=== PATIENT | male | born 1975 | race Asian ===

== ENCOUNTER 2017-07-29 02:54 | Inpatient (IN) | payer SELFPAY ==
[~2017-07-29] VITALS: Ht 175.3 cm; Wt 75.2 kg
[2017-07-29] VITALS (23 sets, daily range): BP systolic 78–176; BP diastolic 59–97; PULSE 78–146; RESP 15–28; TEMP 96.1–103.3; O2SAT 92–100
[~2017-07-29 02:54] MED LIST: AZIT250T3 PO; BENZ1CAP54 PO; LORA5SOL16
[2017-07-29] MEDS ORDERED: SODIUM CHLORIDE 0.9% FLUSH 10 ML FLUSH IV FLUSH PRN (03:30)
[2017-07-29] MEDS ORDERED: NALOXONE HCL 0.4 MG/ML AMP IV PUSH PRN (03:30)
[2017-07-29] MEDS ORDERED: PIPERACIL-TAZO 4.5 GM PREMIX 100 ML IV SCH (06:45)
[2017-07-29] MEDS: SODIUM CHLOR 0.9% 1000 ML INJ 1,000 ML IV SCH ×3 (07:06→19:50)
[2017-07-29] MEDS: SODIUM CHLORIDE 0.9% FLUSH 10 ML FLUSH IV FLUSH SCH ×2 (09:00→19:50)
[2017-07-29 10:08] LABS: PROTHROMBIN TIME - PATIENT 10.2 SEC (9.8-11.6)
[2017-07-29] MEDS ORDERED: MIDAZOLAM HCL 2 MG/2 ML VIAL IV ONE (12:00)
[2017-07-29] MEDS ORDERED: LEVOFLOXACIN/DEXTROSE 500 MG/100 ML IVPB IV ONE (12:10)
--- NOTE | 2017-07-29 12:33 | PD.RAD ---
Post Procedure Progress Note Pre Procedure Diagnosis: (1) Hydronephrosis (2) Ureteral stent occlusion (3) Retained ureteral stent Post Procedure Diagnosis: (1) Pyonephrosis (2) Hydronephrosis (3) Ureteral stent occlusion (4) Retained ureteral stent Procedure Date: Jul 29, 2017 Supervising Radiologist: John Junior Proceduralist/Assist: Anaya Brock, RT(R)(CV), Andrea West RT(R) Anesthesia: Local, Analgesia, Conscious Sedation Plan of Activity Patient to Unit: Other (ED) Patient Condition: Good See PACS Report for procedural detail/treatment Drainage Procedure Procedure 1 Imaging Guidance: Fluoroscopy Side: Right Procedure Type: Nephrostomy Procedure: Placement Icelandic: 10 Fluid Description: Purulent Findings: Purulent aspirate from right kidney collecting system. Sample sent for GS, C&S John Junior MD Jul 29, 2017 12:33
[2017-07-29] MEDS: ONDANSETRON HCL 4 MG/2 ML VIAL IVP PRN (13:44)
[2017-07-29] MEDS ORDERED: ASP: ID consult, note reason in consult order PRN (13:45)
[2017-07-29] MEDS ORDERED: MISCELLANEOUS PHARMACY INFORMATION XX PRN (13:45)
[2017-07-29] MEDS ORDERED: Vancomycin Consult Pharmacy 1 EA OTHER SCH (13:45)
[2017-07-29] MEDS ORDERED: VANCOMYCIN 1,000 MG/NS 250 ML IV ONE ×2 (14:15)
--- NOTE | 2017-07-29 14:22 | HHI.HP ---
[facility] Service [facility] Primary Care Physician No Primary Care Physician Admission Diagnosis Pyelonephritis Diagnoses: (1) Pyonephrosis (2) Retained ureteral stent (3) Hydronephrosis (4) Enteritis Chief Complaint: Abdominal pain Travel History International Travel<30 Days: No Contact w/Intl Traveler <30 Da: No Traveled to Known Affected Are: No History of Present Illness The patient is a 42-year-old [place] male who was admitted from the [place] emergency department overnight due to abdominal pain, nausea, and vomiting. Computer translation service utilized. He reports a history of kidney stones and had a urinary stent placed one year ago. The stent is still in place. He reports that his urine has been foul- smelling. He just returned to the floor from interventional radiology where he had a right nephrostomy tube placed. There was reportedly purulent drainage when the tube was placed. He developed significant nausea and vomiting, which has improved with Zofran. His abdominal pain is also better. He reports chills , but denies fever. Reports mild cough, but no dyspnea or chest pain. He was recently given azithromycin for an upper respiratory infection, and has not yet completed the antibiotics. He states that he had 4 loose stools yesterday, but has had no loose stools today. Review of Systems Constitutional: DENIES: Fever, Chills, Night Sweats Eyes: DENIES: Blurred vision, Vision loss Ears, nose, mouth, throat: DENIES: Hearing loss Respiratory: COMPLAINS OF: Cough, DENIES: Wheezing, Sputum production, Shortness of breath Cardiovascular: DENIES: Chest pain, Palpitations, Dyspnea on Exertion, Lower Extremity Edema Gastrointestinal: COMPLAINS OF: Abdominal pain, Diarrhea, Nausea, Vomiting, DENIES: Constipation Genitourinary: DENIES: Urinary frequency, Urinary incontinence, Urgency, Hematuria, Dysuria, Nocturia Musculoskeletal: DENIES: Joint pain, Muscle aches Integumentary: DENIES: Pruritus, Rash Hematologic/lymphatic: DENIES: Bruising Neurologic: DENIES: Headache Past Family Social History Past Medical History Kidney stones Past Surgical History Ureteral stent placement 1 year ago Reported Medications Azithromycin 250 Mg Tab 250 Mg PO DIRECTED Take 2 tabs (500 mg) on day 1 then 1 tab daily x 4 days. Benzonatate 100 Mg Cap 200 Mg PO TID PRN Loratadine 5 Mg/5 Ml (5 Ml) Solution Allergies: Coded Allergies: No Known Allergies (Unverified , 07/29/17) Family History The patient denies significant family medical history. Social History Denies tobacco or illicit drug use. Occasional alcohol use. Physical Exam Vital Signs Vital Signs Date Time Temp Pulse Resp B/P (MAP) Pulse Ox O2 Delivery O2 Flow Rate FiO2 07/29/17 13:45 96.5 119 18 152/97 (115) 99 07/29/17 12:58 84 16 121/91 (101) 100 07/29/17 12:42 98.0 81 16 123/86 (98) 100 07/29/17 12:00 97.4 97 18 118/71 (87) 92 07/29/17 08:30 81 07/29/17 08:16 82 16 100/64 (76) 98 07/29/17 08:00 96.1 78 15 107/73 (84) 99 07/29/17 07:15 16 07/29/17 07:07 97.9 86 16 101/65 (77) 97 Room Air 07/29/17 06:17 97.7 81 18 117/80 (92) 99 Room Air 07/29/17 06:17 16 Physical Exam GENERAL: Well-nourished, well-developed male in no acute distress. Speaks Mandarin. HEENT: Normocephalic, atraumatic. Pupils equal, round and reactive. Extraocular movements intact. No scleral icterus. No injection or drainage. Oropharynx is clear. Mucous membranes are moist. CARDIOVASCULAR: Regular rate and rhythm without murmurs, gallops, or rubs. RESPIRATORY: Clear to auscultation. No wheezes, rales, or rhonchi. Breathing is non-labored. GASTROINTESTINAL: Abdomen soft, mildly tender to palpation diffusely without rebound or guarding, nondistended. Right nephrostomy tube in place. EXTREMITIES: No lower extremity edema. No calf tenderness. PSYCH: Alert and oriented x 3. Laboratory Laboratory Tests Test 07/29/17 09:35 Prothrombin Time 10.2 Prothromb Time International Ratio 1.0 Activated Partial Thromboplast Time 27.4 Date/Time Source Procedure Growth Status 07/29/17 12:22 Fluid Other Gram Stain Pending Received 07/29/17 12:22 Fluid Other Body Fluid Culture Pending Received Caprini VTE Risk Assessment Caprini VTE Risk Assessment: No/Low Risk (score <= 1) Caprini Risk Assessment Model Point Value = 1 Point Value = 2 Point Value = 3 Point Value = 5 Age 41-60 Minor surgery BMI > 25 kg/m2 Swollen legs Varicose veins or History of unexplained or recurrent spontaneous Oral contraceptives or hormone replacement Sepsis (< 1 month) Serious lung disease, including pneumonia (< 1 month) Abnormal pulmonary function Acute myocardial infarction Congestive heart failure (< 1 month) History of inflammatory bowel disease Medical patient at bed rest Age 61-74 Arthroscopic surgery Major open surgery (> 45 min) Laparoscopic surgery (> 45 min) Malignancy Confined to bed (> 72 hours) Immobilizing plaster cast Central venous access Age >= 75 History of VTE Family history of VTE Factor V Leiden Prothrombin [id number] Lupus anticoagulant Anticardiolipin antibodies Elevated serum homocysteine Heparin-induced thrombocytopenia Other congenital or acquired thrombophilia Stroke (< 1 month) Elective arthroplasty Hip, pelvis, or leg fracture Acute spinal cord injury (< 1 month) Prophylaxis Regimen Total Risk Factor Score Risk Level Prophylaxis Regimen 0-1 Low Early ambulation 2 Moderate Order ONE of the following: *Sequential Compression Device (SCD) *Heparin 5000 units SQ BID 3-4 Higher Order ONE of the following medications: *Heparin 5000 units SQ TID *Enoxaparin/Lovenox 40 mg SQ daily (WT < 150 kg, CrCl > 30 mL/min) *Enoxaparin/Lovenox 30 mg SQ daily (WT < 150 kg, CrCl > 10-29 mL/min) *Enoxaparin/Lovenox 30 mg SQ BID (WT < 150 kg, CrCl > 30 mL/min) AND/OR *Sequential Compression Device (SCD) 5 or more Highest Order ONE of the following medications: *Heparin 5000 units SQ TID (Preferred with Epidurals) *Enoxaparin/Lovenox 40 mg SQ daily (WT < 150 kg, CrCl > 30 mL/min) *Enoxaparin/Lovenox 30 mg SQ daily (WT < 150 kg, CrCl > 10-29 mL/min) *Enoxaparin/Lovenox 30 mg SQ BID (WT < 150 kg, CrCl > 30 mL/min) AND *Sequential Compression Device (SCD) Assessment and Plan Assessment and Plan 1. Pyelonephritis: Patient has evidence of obstruction on CT scan with hydronephrosis. Ureteral stent in place 1 year. Nephrostomy tube placed by interventional radiology with purulent aspirate. Cultures are pending. Urology consult pending. Consult infectious disease. Start patient on vancomycin and meropenem per up-to-date recommendations for treatment of pyelonephritis with urinary obstruction. 2. Enteritis: Patient had diarrhea yesterday, but none today. CT of the abdomen/pelvis shows inflammation consistent with enteritis. Gastroenterology consult is pending. Continue antibiotics. C. difficile test ordered. 3. Acute kidney injury: Secondary to urinary obstruction. Monitor BUN and creatinine. 4. DVT prophylaxis: SCDs. Jose Luther MD Jul 29, 2017 14:22
--- NOTE | 2017-07-29 14:55 | RADRPT ---
EXAM DATE/TIME: 07/29/2017 10:41 [place] COMPARISON: No previous studies available for comparison. INDICATIONS : Patient presents with history of kidney stones in need of nephrostomy tube placement. MEDICAL HISTORY : Kidney stone SURGICAL HISTORY : Stent placement ENCOUNTER: Initial ACUITY: 2 days PAIN SCORE: 0/10 FLUORO TIME: 3.5 minutes IMAGE SERIES: 1 SEDATION TIME: 30 minutes MEDICATION(S): 1.) 100 mcg fentanyl (Sublimaze) IV 2.) 2 mg midazolam (Versed) IV DEVICE(S): 1.) 10 Afghan 23 cm nephrostomy catheter Expel twist loc PROCEDURE : 1. fluoroscopic-guided puncture of the kidney. 2. Antegrade percutaneous pyelogram. 3. Percutaneous nephrostomy placement. 4. Conscious sedation with continuous EKG and oximetry monitoring. The risks, benefits and alternatives to the procedure were explained and verbal and written consent w as obtained. The site was prepped in sterile fashion. Full sterile technique was used, including ca p, mask, sterile gloves and gown and a large sterile sheet. Hand hygiene and 2% chlorhexidine and/or betadine/alcohol prep was utilized per protocol for cutaneous antisepsis. Sterile gel and sterile probe cover were utilized for ultrasound guidance. The skin and subcutaneous tissues were infiltrate d with local anesthetic solution. With fluoroscopic guidance, a 22 gauge, 5 inch spinal needle was advanced into the patient's existing ureteric stent. The inner stylette was removed. Cardiolite fluid emanated from the hub of the cathet er. CO2 was injected through the hard to delineate the posterior calyceal system. A calyx at the junc tion of the upper and midpole was selected and the overlying skin anesthetized with an additional 7 c c 1% Xylocaine. Dermatotomy was made an 11 blade scalpel and the subcutaneous tissues were bluntly di ssected. 18 gauge Erwin blunt needle was advanced through the calyx. The inner stylette was removed again, with purulent fluid emanating from the hub. The 035 Glidewire was advanced through the outer cannula and the wire manipulated into the proximal ureter with a hockey-stick catheter. Tract was ser ially dilated to accommodate the 10 Afghan [place] loop catheter. Catheter was secured to the skin [facility] with 2-0 silk suture. Approximately 40 cc of purulent material was aspirated from the catheter and a sample sent to laboratory for analysis. Catheter was then placed to gravity drainage. Conscious sedation was performed with the prescribed dosages and duration as above in the presence of an independent trained radiology nurse to assist in the monitoring of the patient. EKG and oximetry remained stable throughout the procedure. The patient tolerated the procedure well and there were n o complications. The patient was sent to post anesthesia recovery in stable condition. CONCLUSION: 1. Uncomplicated nephrostomy tube placement as above. 2. Patient has pyonephrosis with purulent material aspirated from the collecting system John Junior MD on July 29, 2017 at 14:17 Board Certified Radiologist. This report was verified electronically.
[2017-07-29] MEDS ORDERED: ACETAMINOPHEN 325 MG SUPP RECTAL PRN (15:00)
[2017-07-29] MEDS: MORPHINE SULFATE 2 MG/ML INJ IV PUSH PRN ×2 (15:22→18:24)
[2017-07-29] MEDS ORDERED: PROMETHAZINE INJ 25 MG/ML VIAL IM ONE (15:30)
[2017-07-29 16:00] LABS: BASOPHIL # 0.1 TH/MM3 (0-0.2); BASOPHIL % 0.9 % (0.0-2.0); EOSINOPHIL % 0.1 % (0.0-4.0); HEMOGLOBIN 9.8 GM/DL (13.0-17.0); LYMPH % 4.1 % (9.0-44.0); LYMPHOCYTE # 0.5 TH/MM3 (1.0-4.8); MEAN CORPUSCULAR HEMOGLOBIN 20.5 PG (27.0-34.0); MEAN CORPUSCULAR HGB CONC 31.5 % (32.0-36.0); MEAN PLATELET VOLUME 7.5 FL (7.0-11.0); MONO % 0.2 % (0.0-8.0); NEUT % 94.7 % (16.0-70.0); PLATELET COUNT 559 TH/MM3 (150-450); RED BLOOD COUNT 4.77 MIL/MM3 (4.50-5.90); RED CELL DISTRIBUTION WIDTH 14.8 % (11.6-17.2); WHITE BLOOD COUNT 12.6 TH/MM3 (4.0-11.0)
[2017-07-29] MEDS: MEROPENEM INJ 1,000 MG in SODIUM CHLORIDE 0.9% INJ 100 ML IV SCH (16:14)
[2017-07-29 16:18] LABS: CHLORIDE 109 MEQ/L (98-107); SODIUM (NA) 140 MEQ/L (136-145)
[2017-07-29 16:22] LABS: ALBUMIN 2.5 GM/DL (3.4-5.0); BICARBONATE 23.3 MEQ/L (21.0-32.0); BLOOD UREA NITROGEN 20 MG/DL (7-18); CALCIUM 8.3 MG/DL (8.5-10.1); GLUCOSE,RANDOM 90 MG/DL (74-106)
[2017-07-29 16:25] LABS: ALT (GPT) 25 U/L (12-78); AST (GOT) 18 U/L (15-37); GLOMERULAR FILTRATION RATE 52 ML/MIN (>89)
[2017-07-29 16:27] LABS: TOTAL BILIRUBIN ADULT 0.5 MG/DL (0.2-1.0); TOTAL PROTEIN 8.5 GM/DL (6.4-8.2)
[2017-07-29 16:28] LABS: ALKALINE PHOSPHATASE 157 U/L (45-117)
--- NOTE | 2017-07-29 16:41 | MB ---
cc: THOMAS THORNE M.D., MATTHEW DATE OF CONSULTATION: 07/29/2017 REASON FOR CONSULTATION Nausea, vomiting, abdominal pain. CT scan showing enteritis. HISTORY OF PRESENT ILLNESS: Mr. Kothari is a 42-year-old gentleman apparently went to the emergency room with lower abdominal pain. He has had a right nephrostomy tube placement because he was found to have hydronephrosis on imaging study he has a indwelling urinary stent and this was placed about a year ago. He has history of kidney stones. On the CT scan incidental finding was thickened loops of the small intestine has prompted GI consultation. The patient states he had nausea, vomiting on admission and some diarrhea yesterday but no diarrhea today. He has not had a bowel movement today. Currently he is having lower abdominal discomfort. REVIEW OF SYSTEMS No active GI bleeding. No nausea, vomiting reported at this time. PAST MEDICAL HISTORY Kidney stones. PAST SURGICAL HISTORY Ureteral stent placement year ago in nephrostomy tube placement this morning. MEDICATIONS 1. Azithromycin. 2. Benzoate. 3. Loratadine. ALLERGIES None documented FAMILY HISTORY Noncontributory. SOCIAL HISTORY Occasional alcohol. No tobacco reported. PHYSICAL EXAMINATION: IN GENERAL: The physical examination reveals a well-nourished man does not speak any Pashto. His history obtained through the chart and through the color expert, he speaks Mandarin. HEAD/NECK: Examination anicteric sclerae. CHEST: Bilateral air entry with rales. ABDOMEN: Abdomen is soft. Slightly distended, diffusely tender, no guarding, no rigidity. A right nephrostomy tube in place. LABORATORY FINDINGS: Labs reveal a INR of one per day and white cell count 10.4, hemoglobin 10.5, creatinine 1.60, alkaline phosphatase 153. CT of the abdomen and pelvis reveals a chronic inflammatory changes and hydronephrosis involving the right kidney with <<2:11>> ureteral stent. Abnormal bowel wall thickening involving small bowel loops concerning for infectious versus inflammatory process. IMPRESSION Enteritis pyelonephritis RECOMMENDATIONS The patient is on broad-spectrum antibiotics including vancomycin and meropenem. Start with liquid dye and morphine for pain control. Will monitor clinically and it appears that most of the symptoms are related to his pyelonephritis. Once his clinical situation improves, we can consider, small-bowel follow-through and a interval repeat CT scan to follow on the progression of the enteritis. We will follow with you. Thank you for this referral. MD BRANDIN Hunter/jyotsna /3:45 PM /4:08 PM
[2017-07-29 16:51] LABS: BANDS 16 % (0-6); LYMPHOCYTES 5 % (9-44); MONOCYTES 2 % (0-8); NEUTROPHIL # MANUAL DIFF 11.7 TH/MM3 (1.8-7.7); POLYS (SEG NEUTROPHILS) 77 % (16-70); TARGET CELLS 2+ (NORMAL)
[2017-07-29 16:52] LABS: ROULEAUX PRESENT (NORMAL)
--- NOTE | 2017-07-29 16:59 | MB ---
cc: BRIANDA CANNON DATE OF CONSULTATION 07/29/17 HISTORY OF PRESENT ILLNESS This is a 42-year-old male who has a history of kidney stones and underwent a stent insertion on the right into the right kidney approximately one year ago while in [place]. The patient was then lost to followup and presented here to [place] emergency room with fever, chills and abdominal pain. He also had some nausea and vomiting. PAST MEDICAL HISTORY The computer translation was utilized and he admits to his only medical problem being history of kidney stones and high blood pressure. MEDICATIONS He denies taking any medications PAST SURGICAL HISTORY Notable for cystoscopy with right ureteral stent placement one year ago in [place]. MEDICATIONS Please refer to the chart. MEDICATIONS NO KNOWN DRUG ALLERGIES. FAMILY HISTORY Denies any significant family medical history. SOCIAL HISTORY He notes social drinking and smoking but denies drug use. REVIEW OF SYSTEMS Notes abdominal pain, dysuria, nausea, vomiting. Denies gait disturbances, bleeding disorders, chest pain, shortness of breath, diarrhea or constipation or psychiatric problems. Denies headaches, eye pain. The remaining review of systems were reviewed and were negative. PHYSICAL EXAMINATION VITAL SIGNS: Temperature is 101.4, heart rate 133, respiratory rate 21, 176/95, 96% on room air. GENERAL: He is a well-developed, well-nourished 42-year-old male who just underwent percutaneous right nephrostomy tube placement somewhat uncomfortable with rigors noted. HEENT: Normocephalic, atraumatic. Pupils equal, round, regular, react to light and accommodation. Extraocular movements are intact. NECK: Supple HEART: Rate is sinus tach. LUNGS: Breath sounds bilaterally. ABDOMEN: Soft. Tenderness over the suprapubic region, right nephrostomy tube is draining blood tinged urine. : Normal phallus. Testes are descended. EXTREMITIES: No cyanosis, clubbing or edema. NEUROLOGIC: Cranial nerves II-XII are intact. PSYCHIATRIC: Generalized mood. LABORATORY DATA Coags - PT is 10.2, INR 1.0, PTT is 27.4, White count is 10.4, hemoglobin 10.5, hematocrit 34.1, platelet count 493. Sodium 138, potassium 4.5, chloride 105, CO2 26.0, BUN of 25, creatinine 1.6, glucose of 88. Urinalysis shows greater than 300 protein, large of blood, moderate leuko esterase, innumerous white cells. IMAGING STUDIES Chronic inflammatory changes with hydronephrosis involving the right kidney with nephroureteral stone which is calcified and a large bladder calculus was also noted. The patient is status post right percutaneous nephrostomy tube. ASSESSMENT This is a 42-year-old male with infected and encrusted right ureteral stent with a large bladder stone. Recommended right percutaneous nephrostomy tube which was placed by IR earlier today. The patient will need to defervesce and then receive p.o. antibiotics at home and then to be rescheduled to undergo cystolithopexy and removal of stent. We will follow with you. Thank you for the consult and allowing me to participate in the care of this patient. Brianda DE/ /3:52 PM /4:36 PM
--- NOTE | 2017-07-29 18:58 | PD.CONS ---
History of Present Illness Service Infectious Disease Consult Requested By Dr Cain Reason for Consult Pyelonephritis Primary Care Physician No Primary Care Physician Diagnoses: (1) Pyonephrosis (2) Hydronephrosis History of Present Illness 42 ? with known h/o kidney stones with previous stent came in with worsening flank pain, nausea and vomiting. Found to have a pyonephrosis so had to have a nephrostomy tube placed following which he had severe vomiting - high grade fever so he is in the ICU. C/o some flank pain now. Review of Systems Constitutional: COMPLAINS OF: Fever, Chills Endocrine: DENIES: Polydipsia Eyes: DENIES: Eye pain, Vision loss Ears, nose, mouth, throat: DENIES: Oral lesions Respiratory: DENIES: Hemoptysis, Sputum production Cardiovascular: DENIES: Lower Extremity Edema Gastrointestinal: COMPLAINS OF: Nausea, Vomiting Musculoskeletal: COMPLAINS OF: Back pain Hematologic/lymphatic: DENIES: Lymphadenopathy Neurologic: DENIES: Headache, Localized weakness Past Family Social History Allergies: Coded Allergies: No Known Allergies (Unverified , 07/29/17) Past Medical History Past Medical History Kidney stones Past Surgical History Ureteral stent placement 1 year ago Active Ordered Medications Vancomycin and Meropenem Family History Non contributory Social History No smoking Physical Exam Vital Signs Vital Signs Date Time Temp Pulse Resp B/P (MAP) Pulse Ox O2 Delivery O2 Flow Rate FiO2 07/29/17 18:45 100.3 134 24 96 07/29/17 18:29 23 07/29/17 18:00 118 07/29/17 18:00 140 27 106/77 (87) 95 07/29/17 17:06 101.2 140 28 123/70 (87) 96 07/29/17 17:00 140 19 96 07/29/17 16:45 103.3 146 25 123/79 (94) 96 07/29/17 14:50 101.4 133 21 176/95 (122) 96 07/29/17 13:45 96.5 119 18 152/97 (115) 99 07/29/17 12:58 84 16 121/91 (101) 100 07/29/17 12:42 98.0 81 16 123/86 (98) 100 07/29/17 12:00 97.4 97 18 118/71 (87) 92 07/29/17 08:30 81 07/29/17 08:16 82 16 100/64 (76) 98 07/29/17 08:00 96.1 78 15 107/73 (84) 99 07/29/17 07:15 16 07/29/17 07:07 97.9 86 16 101/65 (77) 97 Room Air 07/29/17 06:17 97.7 81 18 117/80 (92) 99 Room Air 07/29/17 06:17 16 Physical Exam GENERAL: This is a well-nourished, well-developed patient with severe nausea SKIN: No rashes, ecchymoses or lesions. Cool and dry. HEAD: Atraumatic. Normocephalic. No temporal or scalp tenderness. EYES: Pupils equal round and reactive. Extraocular motions intact. No scleral icterus. No injection or drainage. ENT: Nose without bleeding, purulent drainage or septal hematoma. Throat without erythema, tonsillar hypertrophy or exudate. Uvula midline. Airway patent. NECK: Trachea midline. No JVD or lymphadenopathy. Supple, nontender, no meningeal signs. CARDIOVASCULAR: Regular rate and rhythm without murmurs, gallops, or rubs. RESPIRATORY: Clear to auscultation. Breath sounds equal bilaterally. No wheezes , rales, or rhonchi. GASTROINTESTINAL: Abdomen soft, non-tender, nondistended. No hepato-splenomegaly , or palpable masses. No guarding. Nephrostomy with bloody urine- tenderness over the area MUSCULOSKELETAL: Extremities without clubbing, cyanosis, or edema. No joint tenderness, effusion, or edema noted. No calf tenderness. Negative Homans sign bilaterally. NEUROLOGICAL: Awake and alert. Cranial nerves II through XII intact. Motor and sensory grossly within normal limits. Five out of 5 muscle strength in all muscle groups. Normal speech. Laboratory Laboratory Tests Test 07/29/17 09:35 07/29/17 15:42 Prothrombin Time 10.2 Prothromb Time International Ratio 1.0 Activated Partial Thromboplast Time 27.4 White Blood Count 12.6 Red Blood Count 4.77 Hemoglobin 9.8 Hematocrit 31.0 Mean Corpuscular Volume 65.0 Mean Corpuscular Hemoglobin 20.5 Mean Corpuscular Hemoglobin Concent 31.5 Red Cell Distribution Width 14.8 Platelet Count 559 Mean Platelet Volume 7.5 Neutrophils (%) (Auto) 94.7 Lymphocytes (%) (Auto) 4.1 Monocytes (%) (Auto) 0.2 Eosinophils (%) (Auto) 0.1 Basophils (%) (Auto) 0.9 Neutrophils # (Auto) 12.0 Lymphocytes # (Auto) 0.5 Monocytes # (Auto) 0.0 Eosinophils # (Auto) 0.0 Basophils # (Auto) 0.1 CBC Comment AUTO DIFF Differential Total Cells Counted 100 Neutrophils % (Manual) 77 Band Neutrophils % 16 Lymphocytes % 5 Monocytes % 2 Neutrophils # (Manual) 11.7 Differential Comment FINAL DIFF MANUAL Platelet Estimate HIGH Platelet Morphology Comment NORMAL Target Cells 2+ Rouleau PRESENT Blood Urea Nitrogen 20 Creatinine 1.50 Random Glucose 90 Total Protein 8.5 Albumin 2.5 Calcium Level 8.3 Alkaline Phosphatase 157 Aspartate Amino Transf (AST/SGOT) 18 Alanine Aminotransferase (ALT/SGPT) 25 Total Bilirubin 0.5 Sodium Level 140 Potassium Level 4.1 Chloride Level 109 Carbon Dioxide Level 23.3 Anion Gap 8 Estimat Glomerular Filtration Rate 52 Lactic Acid Level 2.3 Date/Time Source Procedure Growth Status 07/29/17 15:42 Blood Peripheral Aerobic Blood Culture Pending Received 07/29/17 15:42 Blood Peripheral Anaerobic Blood Culture Pending Received 07/29/17 12:22 Fluid Other Gram Stain Pending Received 07/29/17 12:22 Fluid Other Body Fluid Culture Pending Received Result Diagram: 07/29/17 1542 07/29/17 1542 Assessment and Plan Problem List: (1) Pyonephrosis ICD Codes: N13.6 - Pyonephrosis Status: Acute Plan: Patient with severe pyonephrosis & retained stent so pending cultures Continue IV Vancomycin- pharmacy to dose Continue IV Meropenem Follow cultures closely (2) Ureteral stent occlusion ICD Codes: T83.192A - Other mechanical complication of indwelling ureteral stent, initial encounter (3) Hydronephrosis ICD Codes: N13.30 - Unspecified hydronephrosis Neisha Valenzuela MD Jul 29, 2017 18:58
[2017-07-30] VITALS (24 sets, daily range): BP systolic 99–149; BP diastolic 65–98; PULSE 92–124; RESP 18–30; TEMP 97.7–102; O2SAT 97–100
[2017-07-30] MEDS: MEROPENEM INJ 1,000 MG in SODIUM CHLORIDE 0.9% INJ 100 ML IV SCH ×3 (00:33→16:49)
[2017-07-30] MEDS: MORPHINE SULFATE 2 MG/ML INJ IV PUSH PRN ×3 (00:40→23:56)
[2017-07-30] MEDS: VANCOMYCIN INJ 800 MG in SODIUM CHLOR 0.9% 250 ML INJ 250 ML IV SCH ×2 (06:21→20:02)
[2017-07-30] MEDS: SODIUM CHLOR 0.9% 1000 ML INJ 1,000 ML IV SCH ×2 (06:31→20:03)
[2017-07-30 08:36] LABS: CHLORIDE 109 MEQ/L (98-107); SODIUM (NA) 140 MEQ/L (136-145)
[2017-07-30 08:38] LABS: AUTOMATED NEUTROPHIL # 18.2 TH/MM3 (1.8-7.7); BASOPHIL # 0.1 TH/MM3 (0-0.2); BASOPHIL % 0.5 % (0.0-2.0); EOSINOPHIL # 0.1 TH/MM3 (0-0.4); EOSINOPHIL % 0.5 % (0.0-4.0); HEMATOCRIT 27.5 % (39.0-51.0); HEMOGLOBIN 8.5 GM/DL (13.0-17.0); LYMPH % 6.2 % (9.0-44.0); LYMPHOCYTE # 1.3 TH/MM3 (1.0-4.8); MEAN CELL VOLUME 64.9 FL (80.0-100.0); MEAN CORPUSCULAR HEMOGLOBIN 20.1 PG (27.0-34.0); MEAN PLATELET VOLUME 7.7 FL (7.0-11.0); MONO % 3.4 % (0.0-8.0); MONOCYTE # 0.7 TH/MM3 (0-0.9); NEUT % 89.4 % (16.0-70.0); PLATELET COUNT 447 TH/MM3 (150-450); RED BLOOD COUNT 4.23 MIL/MM3 (4.50-5.90); RED CELL DISTRIBUTION WIDTH 14.7 % (11.6-17.2); WHITE BLOOD COUNT 20.4 TH/MM3 (4.0-11.0)
[2017-07-30 08:40] LABS: ALBUMIN 2.1 GM/DL (3.4-5.0); BICARBONATE 23.2 MEQ/L (21.0-32.0); CALCIUM 8.1 MG/DL (8.5-10.1)
[2017-07-30 08:41] LABS: BLOOD UREA NITROGEN 15 MG/DL (7-18); GLUCOSE,RANDOM 89 MG/DL (74-106)
[2017-07-30 08:43] LABS: ALT (GPT) 20 U/L (12-78)
[2017-07-30 08:44] LABS: AST (GOT) 18 U/L (15-37); GLOMERULAR FILTRATION RATE 67 ML/MIN (>89)
[2017-07-30 08:45] LABS: TOTAL BILIRUBIN ADULT 0.3 MG/DL (0.2-1.0); TOTAL PROTEIN 7.3 GM/DL (6.4-8.2)
[2017-07-30 08:46] LABS: ALKALINE PHOSPHATASE 114 U/L (45-117)
--- NOTE | 2017-07-30 09:07 | HHI.PR ---
Subjective Patient symptoms today Pt seen and examined. Seems better. Less pain. Objective Vital Signs Vital Signs Date Time Temp Pulse Resp B/P (MAP) Pulse Ox O2 Delivery O2 Flow Rate FiO2 07/30/17 06:00 118 25 125/87 (100) 07/30/17 06:00 118 07/30/17 05:00 116 22 118/73 (88) 07/30/17 04:00 100.2 116 21 114/70 (85) 07/30/17 04:00 116 07/30/17 03:00 112 21 112/67 (82) 07/30/17 02:00 106 28 119/74 (89) 07/30/17 02:00 106 07/30/17 01:00 120 24 106/67 (80) 07/30/17 00:00 116 07/30/17 00:00 101.2 116 25 120/76 (91) 07/29/17 23:03 118 25 97/59 (72) 07/29/17 23:00 120 23 78/61 (67) 07/29/17 22:00 120 07/29/17 22:00 122 24 101/73 (82) 07/29/17 21:00 124 24 103/65 (78) 07/29/17 20:00 99.0 124 23 103/61 (75) 99 07/29/17 20:00 129 07/29/17 19:00 100.3 128 25 105/62 (76) 96 07/29/17 18:45 100.3 134 24 96 07/29/17 18:29 23 07/29/17 18:00 118 07/29/17 18:00 140 27 106/77 (87) 95 07/29/17 17:06 101.2 140 28 123/70 (87) 96 07/29/17 17:00 140 19 96 07/29/17 16:45 103.3 146 25 123/79 (94) 96 07/29/17 14:50 101.4 133 21 176/95 (122) 96 07/29/17 14:45 101.4 114 20 128/90 (103) 96 07/29/17 13:45 96.5 119 18 152/97 (115) 99 07/29/17 13:30 98 20 120/84 (96) 96 07/29/17 12:58 84 16 121/91 (101) 100 07/29/17 12:42 98.0 81 16 123/86 (98) 100 07/29/17 12:00 97.4 97 18 118/71 (87) 92 Intake & Output 07/30/17 07/30/17 07:00 19:00 Intake Total 2740 ml Output Total 1140 ml Balance 1600 ml Intake Oral 740 ml IV Total 2000 ml Output Urine Total 400 ml Drainage Total 740 ml # Voids 4 # Bowel Movements 1 Result Diagram: 07/30/17 0755 07/30/17 0755 Objective Remarks Abd:soft,nt,nd Right PCNT: clear urine Medications and IVs Current Medications Medications (Trade) Dose Ordered Sig/Galina Route Start Time Stop Time Status Last Admin Sodium Chloride 1,000 ml @ 100 mls/hr Q10H IV 07/29/17 03:26 07/30/17 06:31 (NS Flush) 2 ml UNSCH PRN IV FLUSH 07/29/17 03:30 (NS Flush) 2 ml BID IV FLUSH 07/29/17 09:00 (Zofran Inj) 4 mg Q6H PRN IVP 07/29/17 03:30 07/29/17 13:44 (Narcan Inj) 0.4 mg UNSCH PRN IV PUSH 07/29/17 03:30 (Morphine Inj) 2 mg Q3H PRN IV PUSH 07/29/17 13:45 07/30/17 04:10 Pharmacy Profile Note 0 ml @ 0 mls/hr UNSCH OTHER 07/29/17 13:45 (ASP Crit: Infectious disease consult) 1 UNSCH X1 PRN .XX 07/29/17 13:45 07/30/17 13:44 ([facility] Information) 1 UNSCH X1 PRN XX 07/29/17 13:45 07/30/17 13:44 Meropenem 1000 mg/ Sodium Chloride 100 ml @ 200 mls/hr Q8H IV 07/29/17 16:00 07/30/17 00:33 (Tylenol Supp) 325 mg Q4H PRN RECTAL 07/29/17 15:00 Vancomycin HCl 800 mg/Sodium Chloride 258 ml @ 250 mls/hr Q12H IV 07/30/17 06:00 07/30/17 06:21 Miscellaneous Information SPECIFIC LAB TO BE DRAWN:VANCO TROUGH DATE TO... ONCE ONCE .XX 07/30/17 17:45 07/30/17 17:46 Assessment and Plan Assessment and Plan 42 y.o male with calcified obstructing right ureteral stent Continue IV Abx Will need cystolithopaxy as an outptafter infection has cleared Yaw Bonilla DO Jul 30, 2017 09:07
[2017-07-30] MEDS ORDERED: ACETAMINOPHEN 500 MG CPLT PO PRN (11:15)
--- NOTE | 2017-07-30 11:53 | HHI.PR ---
Subjective Remarks Nursing denies any substantial deterioration since last night except for loose bowel movements. Patient ate breakfast this morning without vomiting. Nursing reports patient is having good output via his nephrostomy tube drain. Patient is non-M[place] speaking but cooperative with physical exam. Objective Vital Signs Date Time Temp Pulse Resp B/P (MAP) Pulse Ox O2 Delivery O2 Flow Rate FiO2 07/30/17 06:00 118 25 125/87 (100) 07/30/17 06:00 118 07/30/17 05:00 116 22 118/73 (88) 07/30/17 04:00 100.2 116 21 114/70 (85) 07/30/17 04:00 116 07/30/17 03:00 112 21 112/67 (82) 07/30/17 02:00 106 28 119/74 (89) 07/30/17 02:00 106 07/30/17 01:00 120 24 106/67 (80) 07/30/17 00:00 116 07/30/17 00:00 101.2 116 25 120/76 (91) 07/29/17 23:03 118 25 97/59 (72) 07/29/17 23:00 120 23 78/61 (67) 07/29/17 22:00 120 07/29/17 22:00 122 24 101/73 (82) 07/29/17 21:00 124 24 103/65 (78) 07/29/17 20:00 99.0 124 23 103/61 (75) 99 07/29/17 20:00 129 07/29/17 19:00 100.3 128 25 105/62 (76) 96 07/29/17 18:45 100.3 134 24 96 07/29/17 18:29 23 07/29/17 18:00 118 07/29/17 18:00 140 27 106/77 (87) 95 07/29/17 17:06 101.2 140 28 123/70 (87) 96 07/29/17 17:00 140 19 96 07/29/17 16:45 103.3 146 25 123/79 (94) 96 07/29/17 14:50 101.4 133 21 176/95 (122) 96 07/29/17 14:45 101.4 114 20 128/90 (103) 96 07/29/17 13:45 96.5 119 18 152/97 (115) 99 07/29/17 13:30 98 20 120/84 (96) 96 07/29/17 12:58 84 16 121/91 (101) 100 07/29/17 12:42 98.0 81 16 123/86 (98) 100 07/29/17 12:00 97.4 97 18 118/71 (87) 92 I/O 07/29/17 07/29/17 07/29/17 07/30/17 07/30/17 07/30/17 06:59 14:59 22:59 06:59 14:59 22:59 Intake Total 820 ml 1000 ml 2740 ml Output Total 1010 ml 1140 ml Balance 820 ml -10 ml 1600 ml Intake Oral 720 ml 50 ml 740 ml IV Total 100 ml 950 ml 2000 ml Output Urine Total 550 ml 400 ml Stool Total 0 ml Drainage Total 460 ml 740 ml # Voids 2 4 # Bowel Movements 0 1 Result Diagram: 07/30/17 0755 07/30/17 0755 Objective Remarks Lying in bed, no acute distress Abdomen soft, nontender, nondistended Nephrostomy tube protruding from right flank with no surrounding erythema from insertion site dressing A/P Assessment and Plan 1. Pyelonephritis: s/p right nephrostomy tube. Cultures are pending. Urology following, med management at this time. vanc and meropenem. IVFs. fevers persisting but improving in intensity. Clinically improved as the nausea vomiting has stopped and he is tolerating p.o. intake. Continue antibiotics and IV fluids 2. Diarrhea - c.d diff pending. monitor 3. Acute kidney injury: Most likely secondary to dehydration from nausea vomiting + diarrhea. Continue IV fluids, improving, recheck BMP in a.m. 4. DVT prophylaxis: SCDs. Noel Sim MD Jul 30, 2017 11:53
--- NOTE | 2017-07-30 14:49 | HHI.GIFU ---
GI Follow-up Note Consult Follow-up Subjective: Patient laying in bed comfortably, no new complaints except lower abdominal pain, diarrhea Objective: PHYSICAL EXAMINATION: Vitals signs stable No fever HEENT: Pupils round and reactive to light; normocephalic; atraumatic; no jaundice. Throat is clear. NECK: Neck is supple, no JVD, no lymphadenopathy. CHEST: Chest is clear to auscultation and percussion. CARDIAC: Regular rate and rhythm with no murmur gallop or rubs. ABDOMEN: Soft, nondistended, nontender; no hepatosplenomegaly; bowel sounds are present in all four quadrants. EXTREMITIES: No clubbing, cyanosis, or edema. SKIN: Normal; no rash; no jaundice. AGRICULTURAL EXTENSION SPECIALIST: No focal deficits; alert and oriented times three. Available Data (labs, X- Rays, Procedues) : Last Impressions Nephrostomy 07/29/17 0000 Signed Impressions: Service Date/Time: Saturday, July 29, 2017 10:41 - CONCLUSION: 1. Uncomplicated nephrostomy tube placement as above. 2. Patient has pyonephrosis with purulent material aspirated from the collecting system John Junior MD Laboratory Tests Test 07/29/17 09:35 07/29/17 15:42 07/30/17 07:55 07/30/17 09:30 Prothrombin Time 10.2 SEC Prothromb Time International Ratio 1.0 RATIO Activated Partial Thromboplast Time 27.4 SEC White Blood Count 12.6 TH/MM3 20.4 TH/MM3 Red Blood Count 4.77 MIL/MM3 4.23 MIL/MM3 Hemoglobin 9.8 GM/DL 8.5 GM/DL Hematocrit 31.0 % 27.5 % Mean Corpuscular Volume 65.0 FL 64.9 FL Mean Corpuscular Hemoglobin 20.5 PG 20.1 PG Mean Corpuscular Hemoglobin Concent 31.5 % 31.0 % Red Cell Distribution Width 14.8 % 14.7 % Platelet Count 559 TH/MM3 447 TH/MM3 Mean Platelet Volume 7.5 FL 7.7 FL Neutrophils (%) (Auto) 94.7 % 89.4 % Lymphocytes (%) (Auto) 4.1 % 6.2 % Monocytes (%) (Auto) 0.2 % 3.4 % Eosinophils (%) (Auto) 0.1 % 0.5 % Basophils (%) (Auto) 0.9 % 0.5 % Neutrophils # (Auto) 12.0 TH/MM3 18.2 TH/MM3 Lymphocytes # (Auto) 0.5 TH/MM3 1.3 TH/MM3 Monocytes # (Auto) 0.0 TH/MM3 0.7 TH/MM3 Eosinophils # (Auto) 0.0 TH/MM3 0.1 TH/MM3 Basophils # (Auto) 0.1 TH/MM3 0.1 TH/MM3 CBC Comment AUTO DIFF AUTO DIFF Differential Total Cells Counted 100 Neutrophils % (Manual) 77 % Band Neutrophils % 16 % Lymphocytes % 5 % Monocytes % 2 % Neutrophils # (Manual) 11.7 TH/MM3 Differential Comment FINAL DIFF MANUAL AUTO DIFF CONFIRMED Platelet Estimate HIGH NORMAL Platelet Morphology Comment NORMAL NORMAL Target Cells 2+ Rouleau PRESENT Blood Urea Nitrogen 20 MG/DL 15 MG/DL Creatinine 1.50 MG/DL 1.20 MG/DL Random Glucose 90 MG/DL 89 MG/DL Total Protein 8.5 GM/DL 7.3 GM/DL Albumin 2.5 GM/DL 2.1 GM/DL Calcium Level 8.3 MG/DL 8.1 MG/DL Alkaline Phosphatase 157 U/L 114 U/L Aspartate Amino Transf (AST/SGOT) 18 U/L 18 U/L Alanine Aminotransferase (ALT/SGPT) 25 U/L 20 U/L Total Bilirubin 0.5 MG/DL 0.3 MG/DL Sodium Level 140 MEQ/L 140 MEQ/L Potassium Level 4.1 MEQ/L 3.9 MEQ/L Chloride Level 109 MEQ/L 109 MEQ/L Carbon Dioxide Level 23.3 MEQ/L 23.2 MEQ/L Anion Gap 8 MEQ/L 8 MEQ/L Estimat Glomerular Filtration Rate 52 ML/MIN 67 ML/MIN Lactic Acid Level 2.3 mmol/L Stool C. difficile Toxin (PCR) NEGATIVE Stl C. difficile Toxin Epiderm 027 PRESUMPTIVE NEGATIVE Allergies Coded Allergies Type Severity Reaction Last Updated Verified No Known Allergies 07/29/17 No Active Scripts Medications Dose Route/Sig Max Daily Dose Days Date Category Dose Instructions Azithromycin 250 Mg Tab 250 Mg PO DIRECTED 07/28/17 Reported Take 2 tabs (500 mg) on day 1 then 1 tab daily x 4 days. Benzonatate 100 Mg Cap 200 Mg PO TID PRN 07/28/17 Reported Loratadine 5 Mg/5 Ml (5 Ml) Solution 07/28/17 Reported ASSESSMENT/PLAN: Seen and examined with nurse. Doing better today. Stool -ve for c. diff , remainder of stool studies-p. WBC worse today. Monitor labs. SBFT tomorrow. Will follow. It was a pleasure seeing Rahul Kothari. Thank you for this consult. Entered by: Herlinda Kitchen MD Jul 30, 2017 14:49
--- NOTE | 2017-07-30 15:23 | HHI.PR ---
Addendum to Inpatient Note Additional Information chart reviewed pt seen today around 3 pm full note to follow Yoselin Bailey MD Jul 30, 2017 15:22
[2017-07-30] MEDS ORDERED: MAGNESIUM CITRATE SOLN 300 ML BTL PO ONE ×2 (16:00→18:00)
[2017-07-30] MEDS: SODIUM CHLORIDE 0.9% FLUSH 10 ML FLUSH IV FLUSH SCH ×2 (16:53→20:03)
[2017-07-30] MEDS ORDERED: PHARMACY ORDERED LAB ONE (17:45)
[2017-07-30] MEDS: BISACODYL EC 5 MG TABEC PO SCH ×2 (20:01→22:04)
--- NOTE | 2017-07-30 20:48 | HHI.IDPN ---
Subjective Subjective Remarks chart reviewed 42 yo M with h/o R ureteral stent, now obstructed presented with completcated UTI , sepsi sp emergent R nephrostomy Fever improved Leukocytosis 20 K blood clx and nephrostomy fluid no growth so far has diarrhea, C.diff negative Antibiotics meropenem vancomycin Allergies: Coded Allergies: No Known Allergies (Unverified , 07/29/17) Objective . Vital Signs Date Time Temp Pulse Resp B/P (MAP) Pulse Ox O2 Delivery O2 Flow Rate FiO2 07/30/17 18:00 99 07/30/17 17:00 92 20 112/77 (89) 07/30/17 16:00 98.5 94 22 112/78 (89) 07/30/17 16:00 92 07/30/17 14:00 92 18 99/65 (76) 07/30/17 13:00 94 20 106/68 (81) 07/30/17 12:00 97.7 108 30 116/75 (89) 99 07/30/17 12:00 108 07/30/17 11:00 114 25 121/77 (92) 07/30/17 10:00 102.0 124 26 135/81 (99) 07/30/17 10:00 124 07/30/17 08:00 112 07/30/17 08:00 118 27 144/85 (104) 97 07/30/17 07:00 99.5 116 18 131/76 (94) 07/30/17 06:00 118 25 125/87 (100) 07/30/17 06:00 118 07/30/17 05:00 116 22 118/73 (88) 07/30/17 04:00 100.2 116 21 114/70 (85) 07/30/17 04:00 116 07/30/17 03:00 112 21 112/67 (82) 07/30/17 02:00 106 28 119/74 (89) 07/30/17 02:00 106 07/30/17 01:00 120 24 106/67 (80) 07/30/17 00:00 116 07/30/17 00:00 101.2 116 25 120/76 (91) 07/29/17 23:03 118 25 97/59 (72) 07/29/17 23:00 120 23 78/61 (67) 07/29/17 22:00 120 07/29/17 22:00 122 24 101/73 (82) 07/29/17 21:00 124 24 103/65 (78) 07/30/17 07/30/17 07/31/17 15:00 23:00 07:00 Intake Total 100 ml 240 ml Output Total 1580 ml Balance 100 ml -1340 ml Intake Oral 240 ml IV Total 100 ml Output Urine Total 700 ml Stool Total 150 ml Drainage Total 730 ml . Laboratory Tests Test 07/29/17 15:42 07/30/17 07:55 White Blood Count 12.6 TH/MM3 20.4 TH/MM3 Red Blood Count 4.77 MIL/MM3 4.23 MIL/MM3 Hemoglobin 9.8 GM/DL 8.5 GM/DL Hematocrit 31.0 % 27.5 % Mean Corpuscular Volume 65.0 FL 64.9 FL Mean Corpuscular Hemoglobin 20.5 PG 20.1 PG Mean Corpuscular Hemoglobin Concent 31.5 % 31.0 % Red Cell Distribution Width 14.8 % 14.7 % Platelet Count 559 TH/MM3 447 TH/MM3 Mean Platelet Volume 7.5 FL 7.7 FL Neutrophils (%) (Auto) 94.7 % 89.4 % Lymphocytes (%) (Auto) 4.1 % 6.2 % Monocytes (%) (Auto) 0.2 % 3.4 % Eosinophils (%) (Auto) 0.1 % 0.5 % Basophils (%) (Auto) 0.9 % 0.5 % Neutrophils # (Auto) 12.0 TH/MM3 18.2 TH/MM3 Lymphocytes # (Auto) 0.5 TH/MM3 1.3 TH/MM3 Monocytes # (Auto) 0.0 TH/MM3 0.7 TH/MM3 Eosinophils # (Auto) 0.0 TH/MM3 0.1 TH/MM3 Basophils # (Auto) 0.1 TH/MM3 0.1 TH/MM3 CBC Comment AUTO DIFF AUTO DIFF Differential Total Cells Counted 100 Neutrophils % (Manual) 77 % Band Neutrophils % 16 % Lymphocytes % 5 % Monocytes % 2 % Neutrophils # (Manual) 11.7 TH/MM3 Differential Comment FINAL DIFF MANUAL AUTO DIFF CONFIRMED Platelet Estimate HIGH NORMAL Platelet Morphology Comment NORMAL NORMAL Target Cells 2+ Rouleau PRESENT Laboratory Tests Test 07/29/17 15:42 07/30/17 07:55 Blood Urea Nitrogen 20 MG/DL 15 MG/DL Creatinine 1.50 MG/DL 1.20 MG/DL Random Glucose 90 MG/DL 89 MG/DL Total Protein 8.5 GM/DL 7.3 GM/DL Albumin 2.5 GM/DL 2.1 GM/DL Calcium Level 8.3 MG/DL 8.1 MG/DL Alkaline Phosphatase 157 U/L 114 U/L Aspartate Amino Transf (AST/SGOT) 18 U/L 18 U/L Alanine Aminotransferase (ALT/SGPT) 25 U/L 20 U/L Total Bilirubin 0.5 MG/DL 0.3 MG/DL Sodium Level 140 MEQ/L 140 MEQ/L Potassium Level 4.1 MEQ/L 3.9 MEQ/L Chloride Level 109 MEQ/L 109 MEQ/L Carbon Dioxide Level 23.3 MEQ/L 23.2 MEQ/L Anion Gap 8 MEQ/L 8 MEQ/L Estimat Glomerular Filtration Rate 52 ML/MIN 67 ML/MIN Lactic Acid Level 2.3 mmol/L Microbiology Date/Time Source Procedure Growth Status 07/29/17 15:42 Blood Peripheral Aerobic Blood Culture - Preliminary NO GROWTH IN 1 DAY Resulted 07/29/17 15:42 Blood Peripheral Anaerobic Blood Culture - Preliminary NO GROWTH IN 1 DAY Resulted 07/29/17 15:38 Blood Peripheral Aerobic Blood Culture - Preliminary NO GROWTH IN 1 DAY Resulted 07/29/17 15:38 Blood Peripheral Anaerobic Blood Culture - Preliminary NO GROWTH IN 1 DAY Resulted 07/29/17 12:22 Fluid Other Gram Stain - Final Resulted 07/29/17 12:22 Fluid Other Body Fluid Culture - Preliminary NO GROWTH IN 24 HOURS. Resulted 07/30/17 09:30 Stool Stool Cryptosporidium Exam Pending Received 07/30/17 09:30 Stool Stool Giardia Antigen (CHANEL) Pending Received 07/30/17 09:30 Stool Stool - Final NO ENTERIC PATHOGENS DETECTED BY PCR... Complete Imaging Last Impressions Nephrostomy 07/29/17 0000 Signed Impressions: Service Date/Time: Saturday, July 29, 2017 10:41 - CONCLUSION: 1. Uncomplicated nephrostomy tube placement as above. 2. Patient has pyonephrosis with purulent material aspirated from the collecting system John Junior MD Physical Exam GENERAL: This is a well-nourished, well-developed patient with severe nausea SKIN: No rashes, ecchymoses or lesions. Cool and dry. HEAD: Atraumatic. Normocephalic. No temporal or scalp tenderness. EYES: Pupils equal round and reactive. Extraocular motions intact. No scleral icterus. No injection or drainage. ENT: Nose without bleeding, purulent drainage or septal hematoma. Throat without erythema, tonsillar hypertrophy or exudate. Uvula midline. Airway patent. NECK: Trachea midline. No JVD or lymphadenopathy. Supple, nontender, no meningeal signs. CARDIOVASCULAR: Regular rate and rhythm without murmurs, gallops, or rubs. RESPIRATORY: Clear to auscultation. Breath sounds equal bilaterally. No wheezes , rales, or rhonchi. GASTROINTESTINAL: Abdomen soft, non-tender, nondistended. No hepato-splenomegaly , or palpable masses. No guarding. : bladder non palpable Nephrostomy with bloody urine R - tenderness over the area MUSCULOSKELETAL: Extremities without clubbing, cyanosis, or edema. No joint tenderness, effusion, or edema noted. No calf tenderness. Negative Homans sign bilaterally. NEUROLOGICAL: Awake and alert. Cranial nerves II through XII intact. Motor and sensory grossly within normal limits. Five out of 5 muscle strength in all muscle groups. Normal speech. Assessment & Plan Remarks Assessment and Plan Problem List: (1) Pyonephrosis ICD Codes: N13.6 - Pyonephrosis Status: Acute Plan: Patient with severe pyonephrosis & retained stent so pending cultures Continue change Continue IV Meropenem to zosyn Follow cultures closely (2) Ureteral stent occlusion - sp nephrostomy placement R (3) Hydronephrosis ICD Codes: N13.30 - Unspecified hydronephrosis Yoselin Bailey MD Jul 30, 2017 20:48
[2017-07-30] MEDS: ONDANSETRON HCL 4 MG/2 ML VIAL IVP PRN (21:22)
[2017-07-30] MEDS ORDERED: PIPERACIL-TAZO 4.5 GM PREMIX 100 ML IV SCH (22:00)
[2017-07-31] VITALS (20 sets, daily range): BP systolic 108–145; BP diastolic 63–91; PULSE 85–110; RESP 16–26; TEMP 98.2–98.6; O2SAT 99–100
[2017-07-31] MEDS ORDERED: VANCOMYCIN 1 GM/200 ML PREMIX IV SCH (04:00)
[2017-07-31] MEDS: PIPERACIL-TAZO 4.5 GM PREMIX 100 ML IV SCH ×4 (04:49→22:06)
[2017-07-31] MEDS: SODIUM CHLOR 0.9% 1000 ML INJ 1,000 ML IV SCH ×2 (04:49→15:26)
[2017-07-31 05:14] LABS: CREATININE 1.1 MG/DL (0.60-1.30)
[2017-07-31] MEDS: SODIUM CHLORIDE 0.9% FLUSH 10 ML FLUSH IV FLUSH SCH ×2 (09:00→22:06)
[2017-07-31] MEDS: ONDANSETRON HCL 4 MG/2 ML VIAL IVP PRN (10:09)
--- NOTE | 2017-07-31 10:52 | RADRPT ---
EXAM DATE/TIME: 07/31/2017 09:47 [facility] COMPARISON: No previous studies available for comparison. INDICATIONS : Diarrhea. Data Input Clerk & 20 min image of small bowel series. Patient was unable to keep any contrast down. MEDICAL HISTORY : Renal calculi. SURGICAL HISTORY : Right uretereal stent & Right nephorstomy tube. ENCOUNTER: Subsequent ACUITY: 3 days PAIN SCORE: 7/10 LOCATION: Right abdomen. FINDINGS: Examination of the abdomen demonstrates a small amount of contrast in the stomach. A small bowel seri es was ordered however the patient was unable to hold the contrast with repeated emesis. Small bowel series was aborted. No free air is identified. No organomegaly is evident. Right nephrostomy and a right internal ureteral stent identified. Osseous structures are intact. CONCLUSION: Aborted small bowel series due to repeated emesis. No evidence of obstruction. Germain Marie MD on July 31, 2017 at 10:47 Board Certified Radiologist. This report was verified electronically.
[2017-07-31 13:51] LABS: BASOPHIL # 0.1 TH/MM3 (0-0.2); BASOPHIL % 0.8 % (0.0-2.0); EOSINOPHIL # 0.2 TH/MM3 (0-0.4); EOSINOPHIL % 1.2 % (0.0-4.0); HEMOGLOBIN 8.3 GM/DL (13.0-17.0); LYMPHOCYTE # 0.9 TH/MM3 (1.0-4.8); MEAN CELL VOLUME 66.2 FL (80.0-100.0); MEAN CORPUSCULAR HEMOGLOBIN 20.3 PG (27.0-34.0); MEAN CORPUSCULAR HGB CONC 30.6 % (32.0-36.0); MEAN PLATELET VOLUME 8.1 FL (7.0-11.0); MONO % 1.1 % (0.0-8.0); MONOCYTE # 0.2 TH/MM3 (0-0.9); NEUT % 91.9 % (16.0-70.0); PLATELET COUNT 481 TH/MM3 (150-450); RED BLOOD COUNT 4.08 MIL/MM3 (4.50-5.90); WHITE BLOOD COUNT 17.4 TH/MM3 (4.0-11.0)
--- NOTE | 2017-07-31 14:06 | HHI.PR ---
Addendum to Inpatient Note Additional Information pt see around 1400 full note to follow Yoselin Bailey MD Jul 31, 2017 14:06
--- NOTE | 2017-07-31 15:15 | HHI.PR ---
Subjective Remarks Nursing reports that the patient cannot tolerate the oral contrast for a small bowel follow-through. They tried twice, the second time he was coached via translation by the brake lining finisher asbestos software. However even after receiving Zofran he still could not tolerate the taste of the contrast. He has been tolerating p.o. intake well and he has been having normal bowel movements per nursing. He has not required IV morphine since last night. Objective Vital Signs Date Time Temp Pulse Resp B/P (MAP) Pulse Ox O2 Delivery O2 Flow Rate FiO2 07/31/17 14:00 89 07/31/17 13:19 98.4 96 21 139/91 (107) 07/31/17 12:00 94 18 128/80 (96) 07/31/17 11:00 98 20 128/89 (102) 07/31/17 09:01 90 17 118/82 (94) 07/31/17 08:01 98.2 90 16 121/80 (94) 07/31/17 08:00 89 07/31/17 07:38 88 21 120/83 (95) 07/31/17 06:42 85 07/31/17 06:00 90 21 108/63 (78) 07/31/17 04:07 99 07/31/17 04:06 98.6 99 18 145/80 (101) 100 07/31/17 03:01 98.6 100 24 117/82 (94) 07/31/17 02:05 104 21 120/72 (88) 07/31/17 02:00 104 07/31/17 01:01 108 19 119/76 (90) 07/31/17 00:00 110 07/31/17 00:00 100 26 126/83 (97) 100 07/30/17 23:42 98.6 110 25 149/98 (115) 100 07/30/17 22:00 108 07/30/17 21:17 102 22 137/85 (102) 100 07/30/17 21:00 104 25 07/30/17 20:01 99.0 102 23 139/93 (108) 100 07/30/17 20:00 102 07/30/17 19:30 100 20 129/87 (101) 07/30/17 18:00 99 07/30/17 17:00 92 20 112/77 (89) 07/30/17 16:00 98.5 94 22 112/78 (89) 07/30/17 16:00 92 I/O 07/30/17 07/30/17 07/30/17 07/31/17 07/31/17 07/31/17 06:59 14:59 22:59 06:59 14:59 22:59 Intake Total 2740 ml 100 ml 1020 ml 1400 ml 400 ml Output Total 1140 ml 1830 ml 300 ml 200 ml Balance 1600 ml 100 ml -810 ml 1100 ml 200 ml Intake Oral 740 ml 660 ml 400 ml IV Total 2000 ml 100 ml 360 ml 1400 ml Output Urine Total 400 ml 700 ml Stool Total 150 ml Drainage Total 740 ml 980 ml 300 ml 200 ml # Voids 4 3 4 1 # Bowel Movements 1 3 4 2 Result Diagram: 07/31/1744707/31/17447 Objective Remarks Lying in bed, no acute distress Abdomen soft, nontender, nondistended Nephrostomy drain protruding from right flank with no surrounding erythema from insertion site dressing A/P Assessment and Plan 1. Pyelonephritis: - s/p right nephrostomy tube. Blood Cultures are neg. - fevers have stopped > 24 hrs. - Urology and ID following, switched to zosyn now per ID 2. Diarrhea - mildly loose stools while C.d diff is neg. I do not feel he has obstruction, in my opinion he doesn't need the SBFT. I will start probiotic. 3. Acute kidney injury: Improving w/ IVFs. 4. DVT prophylaxis: SCDs. downgrading to med-surg. anticipate d/c in AM if all stable and clear w/ specialists. Noel Sim MD Jul 31, 2017 15:15
--- NOTE | 2017-07-31 16:00 | HHI.IDPN ---
Subjective Subjective Remarks doing OK growin Eikenella and ? anaerob no fever x 24 hrs C.diff negative Antibiotics zosyn vancomycin Allergies: Coded Allergies: No Known Allergies (Unverified , 07/29/17) Objective . Vital Signs Date Time Temp Pulse Resp B/P (MAP) Pulse Ox O2 Delivery O2 Flow Rate FiO2 07/31/17 15:01 96 22 120/83 (95) 07/31/17 14:00 89 07/31/17 13:19 98.4 96 21 139/91 (107) 07/31/17 12:00 94 18 128/80 (96) 07/31/17 11:00 98 20 128/89 (102) 07/31/17 09:01 90 17 118/82 (94) 07/31/17 08:01 98.2 90 16 121/80 (94) 07/31/17 08:00 89 07/31/17 07:38 88 21 120/83 (95) 07/31/17 06:42 85 07/31/17 06:00 90 21 108/63 (78) 07/31/17 04:07 99 07/31/17 04:06 98.6 99 18 145/80 (101) 100 07/31/17 03:01 98.6 100 24 117/82 (94) 07/31/17 02:05 104 21 120/72 (88) 07/31/17 02:00 104 07/31/17 01:01 108 19 119/76 (90) 07/31/17 00:00 110 07/31/17 00:00 100 26 126/83 (97) 100 07/30/17 23:42 98.6 110 25 149/98 (115) 100 07/30/17 22:00 108 07/30/17 21:17 102 22 137/85 (102) 100 07/30/17 21:00 104 25 07/30/17 20:01 99.0 102 23 139/93 (108) 100 07/30/17 20:00 102 07/30/17 19:30 100 20 129/87 (101) 07/30/17 18:00 99 07/30/17 17:00 92 20 112/77 (89) 07/30/17 16:00 98.5 94 22 112/78 (89) 07/30/17 16:00 92 07/31/17 07/31/17 08/01/17 15:00 23:00 07:00 Intake Total 400 ml Output Total 200 ml Balance 200 ml Intake Oral 400 ml Drainage Total 200 ml # Voids 1 # Bowel Movements 2 . Laboratory Tests Test 07/30/17 07:55 07/31/17 04:48 White Blood Count 20.4 TH/MM3 17.4 TH/MM3 Red Blood Count 4.23 MIL/MM3 4.08 MIL/MM3 Hemoglobin 8.5 GM/DL 8.3 GM/DL Hematocrit 27.5 % 27.0 % Mean Corpuscular Volume 64.9 FL 66.2 FL Mean Corpuscular Hemoglobin 20.1 PG 20.3 PG Mean Corpuscular Hemoglobin Concent 31.0 % 30.6 % Red Cell Distribution Width 14.7 % 15.0 % Platelet Count 447 TH/MM3 481 TH/MM3 Mean Platelet Volume 7.7 FL 8.1 FL Neutrophils (%) (Auto) 89.4 % 91.9 % Lymphocytes (%) (Auto) 6.2 % 5.0 % Monocytes (%) (Auto) 3.4 % 1.1 % Eosinophils (%) (Auto) 0.5 % 1.2 % Basophils (%) (Auto) 0.5 % 0.8 % Neutrophils # (Auto) 18.2 TH/MM3 16.0 TH/MM3 Lymphocytes # (Auto) 1.3 TH/MM3 0.9 TH/MM3 Monocytes # (Auto) 0.7 TH/MM3 0.2 TH/MM3 Eosinophils # (Auto) 0.1 TH/MM3 0.2 TH/MM3 Basophils # (Auto) 0.1 TH/MM3 0.1 TH/MM3 CBC Comment AUTO DIFF AUTO DIFF Differential Comment AUTO DIFF CONFIRMED AUTO DIFF CONFIRMED Platelet Estimate NORMAL Platelet Morphology Comment NORMAL Laboratory Tests Test 07/30/17 07:55 07/31/17 04:48 Blood Urea Nitrogen 15 MG/DL Creatinine 1.20 MG/DL 1.10 MG/DL Random Glucose 89 MG/DL Total Protein 7.3 GM/DL Albumin 2.1 GM/DL Calcium Level 8.1 MG/DL Alkaline Phosphatase 114 U/L Aspartate Amino Transf (AST/SGOT) 18 U/L Alanine Aminotransferase (ALT/SGPT) 20 U/L Total Bilirubin 0.3 MG/DL Sodium Level 140 MEQ/L Potassium Level 3.9 MEQ/L Chloride Level 109 MEQ/L Carbon Dioxide Level 23.2 MEQ/L Anion Gap 8 MEQ/L Estimat Glomerular Filtration Rate 67 ML/MIN 74 ML/MIN Microbiology Date/Time Source Procedure Growth Status 07/29/17 15:42 Blood Peripheral Aerobic Blood Culture - Preliminary NO GROWTH IN 2 DAYS Resulted 07/29/17 15:42 Blood Peripheral Anaerobic Blood Culture - Preliminary NO GROWTH IN 2 DAYS Resulted 07/29/17 15:38 Blood Peripheral Aerobic Blood Culture - Preliminary NO GROWTH IN 2 DAYS Resulted 07/29/17 15:38 Blood Peripheral Anaerobic Blood Culture - Preliminary NO GROWTH IN 2 DAYS Resulted 07/29/17 12:22 Fluid Other Gram Stain - Final Resulted 07/29/17 12:22 Body Fluid Culture - Preliminary Eikenella Corrodens Resulted 07/30/17 09:30 Stool Stool Cryptosporidium Exam - Final NEGATIVE - NO CRYPTOSPORIDIUM ANTIGEN... Complete 07/30/17 09:30 Stool Stool Giardia Antigen (CHANEL) - Final NEGATIVE - NO GIARDIA ANTIGEN DETECTE... Complete 07/30/17 09:30 Stool Stool - Final NO ENTERIC PATHOGENS DETECTED BY PCR... Complete Imaging Last Impressions Abdomen X-Ray 07/31/17 0000 Signed Impressions: Service Date/Time: July 09:47 - CONCLUSION: Aborted small bowel series due to repeated emesis. No evidence of obstruction. Germain Marie MD Nephrostomy 07/29/17 0000 Signed Impressions: Service Date/Time: Saturday, July 29, 2017 10:41 - CONCLUSION: 1. Uncomplicated nephrostomy tube placement as above. 2. Patient has pyonephrosis with purulent material aspirated from the collecting system John Junior MD Physical Exam GENERAL: This is a well-nourished, well-developed patient with severe nausea SKIN: No rashes, ecchymoses or lesions. Cool and dry. CARDIOVASCULAR: Regular rate and rhythm without murmurs, gallops, or rubs. RESPIRATORY: Clear to auscultation. Breath sounds equal bilaterally. No wheezes , rales, or rhonchi. GASTROINTESTINAL: Abdomen soft, non-tender, nondistended. No hepato-splenomegaly , or palpable masses. No guarding. : Nephrostomy with more more clear looking urine MUSCULOSKELETAL: Extremities without clubbing, cyanosis, or edema. No joint tenderness, effusion, or edema noted. No calf tenderness. Negative Homans sign bilaterally. NEUROLOGICAL: Awake and alert. NOn focal strength in all muscle groups. Normal speech. Assessment & Plan Remarks Assessment and Plan Problem List: (1) Pyonephrosis: mixed aerobic/anaerobica inmfection ICD Codes: N13.6 - Pyonephrosis Status: Acute Plan: Patient with severe pyonephrosis & retained stent so pending cultures Continue zosyn Follow cultures closely unticipate to transition to po abx eventually 'dc vanncomycin (2) Ureteral stent occlusion - sp nephrostomy placement R (3) Hydronephrosis ICD Codes: N13.30 - Unspecified hydronephrosis Yoselin Bailey MD Jul 31, 2017 16:00
--- NOTE | 2017-07-31 20:07 | HHI.GIFU ---
Subjective Remarks Patient reports improvement in his symptoms of abdominal pain nausea vomiting. He is afebrile Objective Vitals I&O Vital Signs Date Time Temp Pulse Resp B/P (MAP) Pulse Ox O2 Delivery O2 Flow Rate FiO2 07/31/17 16:00 85 07/31/17 16:00 90 23 121/89 (100) 07/31/17 15:01 96 22 120/83 (95) 07/31/17 15:01 96 22 120/83 (95) 07/31/17 14:00 89 07/31/17 13:19 98.4 96 21 139/91 (107) 07/31/17 12:00 94 18 128/80 (96) 07/31/17 11:00 98 20 128/89 (102) 07/31/17 09:01 90 17 118/82 (94) 07/31/17 08:01 98.2 90 16 121/80 (94) 07/31/17 08:00 89 07/31/17 07:38 88 21 120/83 (95) 07/31/17 06:42 85 07/31/17 06:00 90 21 108/63 (78) 07/31/17 04:07 99 07/31/17 04:06 98.6 99 18 145/80 (101) 100 07/31/17 03:01 98.6 100 24 117/82 (94) 07/31/17 02:05 104 21 120/72 (88) 07/31/17 02:00 104 07/31/17 01:01 108 19 119/76 (90) 07/31/17 00:00 110 07/31/17 00:00 100 26 126/83 (97) 100 07/30/17 23:42 98.6 110 25 149/98 (115) 100 07/30/17 22:00 108 07/30/17 21:17 102 22 137/85 (102) 100 07/30/17 21:00 104 25 I/O 07/30/17 07/30/17 07/30/17 07/31/17 07/31/17 07/31/17 07:00 15:00 23:00 07:00 15:00 23:00 Intake Total 2740 ml 100 ml 1020 ml 1400 ml 400 ml 420 ml Output Total 1140 ml 1830 ml 300 ml 200 ml 2 ml Balance 1600 ml 100 ml -810 ml 1100 ml 200 ml 418 ml Intake Oral 740 ml 660 ml 400 ml 420 ml IV Total 2000 ml 100 ml 360 ml 1400 ml Output Urine Total 400 ml 700 ml Stool Total 150 ml 2 ml Drainage Total 740 ml 980 ml 300 ml 200 ml # Voids 4 3 4 1 # Bowel Movements 1 3 4 2 Laboratory Laboratory Tests Test 07/31/17 04:48 White Blood Count 17.4 Red Blood Count 4.08 Hemoglobin 8.3 Hematocrit 27.0 Mean Corpuscular Volume 66.2 Mean Corpuscular Hemoglobin 20.3 Mean Corpuscular Hemoglobin Concent 30.6 Red Cell Distribution Width 15.0 Platelet Count 481 Mean Platelet Volume 8.1 Neutrophils (%) (Auto) 91.9 Lymphocytes (%) (Auto) 5.0 Monocytes (%) (Auto) 1.1 Eosinophils (%) (Auto) 1.2 Basophils (%) (Auto) 0.8 Neutrophils # (Auto) 16.0 Lymphocytes # (Auto) 0.9 Monocytes # (Auto) 0.2 Eosinophils # (Auto) 0.2 Basophils # (Auto) 0.1 CBC Comment AUTO DIFF Differential Comment AUTO DIFF CONFIRMED Creatinine 1.10 Estimat Glomerular Filtration Rate 74 Date/Time Source Procedure Growth Status 07/29/17 15:42 Blood Peripheral Aerobic Blood Culture - Preliminary NO GROWTH IN 2 DAYS Resulted 07/29/17 15:42 Blood Peripheral Anaerobic Blood Culture - Preliminary NO GROWTH IN 2 DAYS Resulted 07/29/17 12:22 Fluid Other Gram Stain - Final Resulted 07/29/17 12:22 Body Fluid Culture - Preliminary Eikenella Corrodens Resulted 07/30/17 09:30 Stool Stool Cryptosporidium Exam - Final NEGATIVE - NO CRYPTOSPORIDIUM ANTIGEN... Complete 07/30/17 09:30 Stool Stool Giardia Antigen (CHANEL) - Final NEGATIVE - NO GIARDIA ANTIGEN DETECTE... Complete Imaging Patient refused small bowel follow-through study Physical Exam HEENT: Pupils round and reactive to light; normocephalic; atraumatic; no jaundice. Throat is clear. NECK: Neck is supple, no JVD, no lymphadenopathy. CHEST: Chest is clear to auscultation and percussion. CARDIAC: Regular rate and rhythm with no murmur gallop or rubs. ABDOMEN: Soft, nondistended, nontender; no hepatosplenomegaly; bowel sounds are present in all four quadrants. EXTREMITIES: No clubbing, cyanosis, or edema. SKIN: Normal; no rash; no jaundice. [employer]: No focal deficits; alert and oriented times three. Assessment and Plan Assessment: (1) Crohn's disease involving terminal ileum ICD Codes: K50.90 - Crohn's disease, unspecified, without complications (2) Pyonephrosis ICD Codes: N13.6 - Pyonephrosis Status: Acute (3) Enteritis ICD Codes: K52.9 - Noninfective gastroenteritis and colitis, unspecified (4) Hydronephrosis ICD Codes: N13.30 - Unspecified hydronephrosis (5) Ureteral stent occlusion ICD Codes: T83.192A - Other mechanical complication of indwelling ureteral stent, initial encounter (6) Retained ureteral stent ICD Codes: Z96.0 - Presence of urogenital implants Plan 1. Possibility of distal small bowel disease based on the CT scan study. Crohn 's disease and IPSID need to be checked for as outpatient 2. Patient to follow-up in the office after discharge to undergo small bowel evaluation with Shane Bain MD Jul 31, 2017 20:07
[2017-08-01] VITALS: BP 121/83; PULSE 86; RESP 27; TEMP 98.3; O2SAT 100
[2017-08-01] MEDS: SODIUM CHLOR 0.9% 1000 ML INJ 1,000 ML IV SCH ×2 (04:31→11:21)
[2017-08-01] MEDS: PIPERACIL-TAZO 4.5 GM PREMIX 100 ML IV SCH (04:33)
[2017-08-01 05:04] LABS: AUTOMATED NEUTROPHIL # 6.1 TH/MM3 (1.8-7.7); BASOPHIL # 0.1 TH/MM3 (0-0.2); BASOPHIL % 0.6 % (0.0-2.0); EOSINOPHIL # 0.3 TH/MM3 (0-0.4); EOSINOPHIL % 3.9 % (0.0-4.0); HEMATOCRIT 26.6 % (39.0-51.0); HEMOGLOBIN 8.1 GM/DL (13.0-17.0); LYMPH % 18.8 % (9.0-44.0); LYMPHOCYTE # 1.6 TH/MM3 (1.0-4.8); MEAN CELL VOLUME 65.2 FL (80.0-100.0); MEAN CORPUSCULAR HGB CONC 30.7 % (32.0-36.0); MEAN PLATELET VOLUME 7.3 FL (7.0-11.0); MONO % 7.2 % (0.0-8.0); MONOCYTE # 0.6 TH/MM3 (0-0.9); NEUT % 69.5 % (16.0-70.0); PLATELET COUNT 452 TH/MM3 (150-450); RED BLOOD COUNT 4.07 MIL/MM3 (4.50-5.90); RED CELL DISTRIBUTION WIDTH 14.8 % (11.6-17.2); WHITE BLOOD COUNT 8.7 TH/MM3 (4.0-11.0)
[2017-08-01 07:00] VITALS: PULSE 66; RESP 24
[2017-08-01 08:00] VITALS: BP 124/82; RESP 23; TEMP 98.5; O2SAT 100
[2017-08-01] MEDS: SODIUM CHLORIDE 0.9% FLUSH 10 ML FLUSH IV FLUSH SCH (09:00)
--- NOTE | 2017-08-01 10:34 | HHI.IDPN ---
Subjective Subjective Remarks Doing well, no fever no pain growin Eikenella and anaerob BC reain negative C.diff negative Antibiotics zosyn Allergies: Coded Allergies: No Known Allergies (Unverified , 07/29/17) Objective . Vital Signs Date Time Temp Pulse Resp B/P (MAP) Pulse Ox O2 Delivery O2 Flow Rate FiO2 08/01/17 07:00 66 24 08/01/17 00:00 98.3 86 27 121/83 (96) 100 07/31/17 20:00 98.6 86 22 120/74 (89) 99 07/31/17 16:00 85 07/31/17 16:00 90 23 121/89 (100) 07/31/17 15:01 96 22 120/83 (95) 07/31/17 15:01 96 22 120/83 (95) 07/31/17 14:00 89 07/31/17 13:19 98.4 96 21 139/91 (107) 07/31/17 12:00 94 18 128/80 (96) 07/31/17 11:00 98 20 128/89 (102) . Laboratory Tests Test 07/31/17 04:48 08/01/17 04:50 White Blood Count 17.4 TH/MM3 8.7 TH/MM3 Red Blood Count 4.08 MIL/MM3 4.07 MIL/MM3 Hemoglobin 8.3 GM/DL 8.1 GM/DL Hematocrit 27.0 % 26.6 % Mean Corpuscular Volume 66.2 FL 65.2 FL Mean Corpuscular Hemoglobin 20.3 PG 20.0 PG Mean Corpuscular Hemoglobin Concent 30.6 % 30.7 % Red Cell Distribution Width 15.0 % 14.8 % Platelet Count 481 TH/MM3 452 TH/MM3 Mean Platelet Volume 8.1 FL 7.3 FL Neutrophils (%) (Auto) 91.9 % 69.5 % Lymphocytes (%) (Auto) 5.0 % 18.8 % Monocytes (%) (Auto) 1.1 % 7.2 % Eosinophils (%) (Auto) 1.2 % 3.9 % Basophils (%) (Auto) 0.8 % 0.6 % Neutrophils # (Auto) 16.0 TH/MM3 6.1 TH/MM3 Lymphocytes # (Auto) 0.9 TH/MM3 1.6 TH/MM3 Monocytes # (Auto) 0.2 TH/MM3 0.6 TH/MM3 Eosinophils # (Auto) 0.2 TH/MM3 0.3 TH/MM3 Basophils # (Auto) 0.1 TH/MM3 0.1 TH/MM3 CBC Comment AUTO DIFF AUTO DIFF Differential Comment AUTO DIFF CONFIRMED AUTO DIFF CONFIRMED Platelet Estimate HIGH Platelet Morphology Comment NORMAL Laboratory Tests Test 07/31/17 04:48 Creatinine 1.10 MG/DL Estimat Glomerular Filtration Rate 74 ML/MIN Microbiology Date/Time Source Procedure Growth Status 07/29/17 15:42 Blood Peripheral Aerobic Blood Culture - Preliminary NO GROWTH IN 2 DAYS Resulted 07/29/17 15:42 Blood Peripheral Anaerobic Blood Culture - Preliminary NO GROWTH IN 2 DAYS Resulted 07/29/17 15:38 Blood Peripheral Aerobic Blood Culture - Preliminary NO GROWTH IN 2 DAYS Resulted 07/29/17 15:38 Blood Peripheral Anaerobic Blood Culture - Preliminary NO GROWTH IN 2 DAYS Resulted 07/29/17 12:22 Fluid Other Gram Stain - Final Complete 07/29/17 12:22 Body Fluid Culture - Final Eikenella Corrodens Anaerobic Streptococcus Complete 07/30/17 09:30 Stool Stool Cryptosporidium Exam - Final NEGATIVE - NO CRYPTOSPORIDIUM ANTIGEN... Complete 07/30/17 09:30 Stool Stool Giardia Antigen (CHANEL) - Final NEGATIVE - NO GIARDIA ANTIGEN DETECTE... Complete 07/30/17 09:30 Stool Stool - Final NO ENTERIC PATHOGENS DETECTED BY PCR... Complete Imaging Last Impressions Abdomen X-Ray 07/31/17 0000 Signed Impressions: Service Date/Time: July 09:47 - CONCLUSION: Aborted small bowel series due to repeated emesis. No evidence of obstruction. Germain Marie MD Nephrostomy 07/29/17 0000 Signed Impressions: Service Date/Time: Saturday, July 29, 2017 10:41 - CONCLUSION: 1. Uncomplicated nephrostomy tube placement as above. 2. Patient has pyonephrosis with purulent material aspirated from the collecting system John Junior MD Physical Exam GENERAL: This is a well-nourished, well-developed patient with severe nausea SKIN: No rashes, ecchymoses or lesions. Cool and dry. CARDIOVASCULAR: Regular rate and rhythm without murmurs, gallops, or rubs. RESPIRATORY: Clear to auscultation. Breath sounds equal bilaterally. No wheezes , rales, or rhonchi. GASTROINTESTINAL: Abdomen soft, non-tender, nondistended. No hepato-splenomegaly , or palpable masses. No guarding. : Nephrostomy with more more clear looking urine MUSCULOSKELETAL: Extremities without clubbing, cyanosis, or edema. No joint tenderness, effusion, or edema noted. No calf tenderness. Negative Homans sign bilaterally. NEUROLOGICAL: Awake and alert. NOn focal strength in all muscle groups. Normal speech. Ambulates w/o assistance Assessment & Plan Remarks Assessment and Plan Problem List: (1) Pyonephrosis: mixed aerobic/anaerobica inmfection: Eikenella corredens and anaerobic strep ICD Codes: N13.6 - Pyonephrosis Status: Acute Plan: dc zosyn start Unasyn OK to switch to Augmentin 500 tid when ready for d/c to complete at least 2- 3 weeks of abx. unticipate to transition to po abx eventually 'dc vanncomycin (2) Ureteral stent occlusion - sp nephrostomy placement R (3) Hydronephrosis ICD Codes: N13.30 - Unspecified hydronephrosis Yoselin Bailey MD Aug 01, 2017 10:33
[2017-08-01] MEDS ORDERED: AUGM500T7 PO (10:36)
[2017-08-01] MEDS ORDERED: AMPICILLIN-SULBACTAM INJ 3 GM VIAL IM SCH (10:45)
[2017-08-01 12:00] VITALS: BP 128/74; PULSE 71; RESP 25; TEMP 97.9; O2SAT 99
[2017-08-01] MEDS ORDERED: AMPICILLIN/SULBAC 3 GM/NS 100 ML IV SCH ×2 (12:00)
--- NOTE | 2017-08-01 12:01 | HHI.DCPOC ---
Discharge Care Plan Diagnosis: (1) Retained ureteral stent (2) Hydronephrosis (3) Pyonephrosis Goals to Promote Your Health * To prevent worsening of your condition and complications * To maintain your health at the optimal level Directions to Meet Your Goals Take your medications as prescribed Follow your dietary instruction Follow activity as directed Keep your appointments as scheduled Take your immunizations and boosters as scheduled If your symptoms worsen call your PCP, if no PCP go to Urgent Care Center or Emergency Room Smoking is Dangerous to Your Health. Avoid second hand smoke Call the 24-hour hour crisis hotline for domestic abuse at Jose Triana Aug 01, 2017 12:00
--- NOTE | 2017-08-01 12:02 | HHI.DS ---
Discharge Summary Admission Date Jul 29, 2017 at 06:17 Discharge Date: Aug 01, 2017 Admitting Diagnosis Pyelonephritis (1) Pyonephrosis ICD Code: N13.6 - Pyonephrosis Status: Acute (2) Retained ureteral stent ICD Code: Z96.0 - Presence of urogenital implants (3) Hydronephrosis ICD Code: N13.30 - Unspecified hydronephrosis (4) Enteritis ICD Code: K52.9 - Noninfective gastroenteritis and colitis, unspecified (5) Crohn's disease involving terminal ileum ICD Code: K50.90 - Crohn's disease, unspecified, without complications (6) Ureteral stent occlusion ICD Code: T83.192A - Other mechanical complication of indwelling ureteral stent , initial encounter (7) Sepsis ICD Code: A41.9 - Sepsis, unspecified organism Procedures 07/29/17 nephrostomy tube placement Brief History - From Admission The patient is a 42-year-old Pashto male who was admitted from the [facility] emergency department overnight due to abdominal pain, nausea, and vomiting. Computer translation service utilized. He reports a history of kidney stones and had a urinary stent placed one year ago. The stent is still in place. He reports that his urine has been foul- smelling. He just returned to the floor from interventional radiology where he had a right nephrostomy tube placed. There was reportedly purulent drainage when the tube was placed. He developed significant nausea and vomiting, which has improved with Zofran. His abdominal pain is also better. He reports chills , but denies fever. Reports mild cough, but no dyspnea or chest pain. He was recently given azithromycin for an upper respiratory infection, and has not yet completed the antibiotics. He states that he had 4 loose stools yesterday, but has had no loose stools today. CBC/BMP: 08/01/17 0450 07/31/17 0448 Significant Findings Laboratory Tests Test 07/29/17 15:42 07/30/17 07:55 07/30/17 09:30 07/30/17 19:55 White Blood Count 12.6 TH/MM3 (4.0-11.0) 20.4 TH/MM3 (4.0-11.0) Hemoglobin 9.8 GM/DL (13.0-17.0) 8.5 GM/DL (13.0-17.0) Hematocrit 31.0 % (39.0-51.0) 27.5 % (39.0-51.0) Mean Corpuscular Volume 65.0 FL (80.0-100.0) 64.9 FL (80.0-100.0) Mean Corpuscular Hemoglobin 20.5 PG (27.0-34.0) 20.1 PG (27.0-34.0) Mean Corpuscular Hemoglobin Concent 31.5 % (32.0-36.0) 31.0 % (32.0-36.0) Platelet Count 559 TH/MM3 (150-450) Neutrophils (%) (Auto) 94.7 % (16.0-70.0) 89.4 % (16.0-70.0) Lymphocytes (%) (Auto) 4.1 % (9.0-44.0) 6.2 % (9.0-44.0) Neutrophils # (Auto) 12.0 TH/MM3 (1.8-7.7) 18.2 TH/MM3 (1.8-7.7) Lymphocytes # (Auto) 0.5 TH/MM3 (1.0-4.8) Neutrophils % (Manual) 77 % (16-70) Band Neutrophils % 16 % (0-6) Lymphocytes % 5 % (9-44) Neutrophils # (Manual) 11.7 TH/MM3 (1.8-7.7) Platelet Estimate HIGH (NORMAL) Target Cells 2+ (NORMAL) Rouleau PRESENT (NORMAL) Blood Urea Nitrogen 20 MG/DL (7-18) Creatinine 1.50 MG/DL (0.60-1.30) Total Protein 8.5 GM/DL (6.4-8.2) Albumin 2.5 GM/DL (3.4-5.0) 2.1 GM/DL (3.4-5.0) Calcium Level 8.3 MG/DL (8.5-10.1) 8.1 MG/DL (8.5-10.1) Alkaline Phosphatase 157 U/L (45-117) Chloride Level 109 MEQ/L (98-107) 109 MEQ/L (98-107) Estimat Glomerular Filtration Rate 52 ML/MIN (>89) 67 ML/MIN (>89) Lactic Acid Level 2.3 mmol/L (0.4-2.0) Red Blood Count 4.23 MIL/MM3 (4.50-5.90) Test 07/31/17 04:48 08/01/17 04:50 White Blood Count 17.4 TH/MM3 (4.0-11.0) Red Blood Count 4.08 MIL/MM3 (4.50-5.90) 4.07 MIL/MM3 (4.50-5.90) Hemoglobin 8.3 GM/DL (13.0-17.0) 8.1 GM/DL (13.0-17.0) Hematocrit 27.0 % (39.0-51.0) 26.6 % (39.0-51.0) Mean Corpuscular Volume 66.2 FL (80.0-100.0) 65.2 FL (80.0-100.0) Mean Corpuscular Hemoglobin 20.3 PG (27.0-34.0) 20.0 PG (27.0-34.0) Mean Corpuscular Hemoglobin Concent 30.6 % (32.0-36.0) 30.7 % (32.0-36.0) Platelet Count 481 TH/MM3 (150-450) 452 TH/MM3 (150-450) Neutrophils (%) (Auto) 91.9 % (16.0-70.0) Lymphocytes (%) (Auto) 5.0 % (9.0-44.0) Neutrophils # (Auto) 16.0 TH/MM3 (1.8-7.7) Lymphocytes # (Auto) 0.9 TH/MM3 (1.0-4.8) Estimat Glomerular Filtration Rate 74 ML/MIN (>89) Platelet Estimate HIGH (NORMAL) Imaging Last Impressions Abdomen X-Ray 07/31/17 0000 Signed Impressions: Service Date/Time: July 09:47 - CONCLUSION: Aborted small bowel series due to repeated emesis. No evidence of obstruction. Germain Marie MD Nephrostomy 07/29/17 0000 Signed Impressions: Service Date/Time: Saturday, July 29, 2017 10:41 - CONCLUSION: 1. Uncomplicated nephrostomy tube placement as above. 2. Patient has pyonephrosis with purulent material aspirated from the collecting system John Junior MD Hospital Course This is a 42-year-old male who has history of kidney stones with urinary stent placed a year ago and stent is still in place. Patient presented to emergency department stating that he had foul-smelling urine. Patient had workup done emergency department and found to have sepsis criteria with leukocytosis, tachycardia, urinary tract infection. CT scan was done of the abdomen which did show hydronephrosis of the right kidney with nephroureteral stent and inspissated calcium noted. There was also abnormal bowel wall thickening involving small bowel loops patient was admitted to the hospital with multiple consultations. GI was consulted and performed evaluation. Patient was started on empirical antibiotics. As indicated possible Crohn's of the distal ileum. Recommended small bowel series, however patient was not cooperative in performing the study. GI recommended outpatient follow-up for possible pill endoscopy. Urology was consulted for the calcified stent and hydronephrosis. Patient was sent to radiology and had nephrostomy tube placed for drainage. Fluid was taken and was found to have multiple organisms. Infectious disease was consulted who made recommendations for inpatient and outpatient antibiotics. Discussed the case with urology who indicated that the patient should require at least 2 weeks of oral antibiotics and treatment of the infection prior to any surgical intervention. He indicated that patient will require extensive surgery with laser and special instrumentation that will need to be set up in outpatient setting. Patient is clinically stable this time. Sepsis has resolved. Patient tolerating well to the antibiotics. Leukocytosis has completely resolved. Patient no longer expressing any fevers. Patient be discharged home with mandatory outpatient referrals to GI, urology. Patient was provided prescription for 3 weeks worth of oral antibiotics. Patient was given instructions on nephrostomy tube management. Patient is clinically stable this time. Will plan discharge accordingly once arrangements made by case management. Pt Condition on Discharge: Stable Discharge Disposition: Discharge Home Discharge Time: > 30 minutes Discharge Instructions DIET: Follow Instructions for: As Tolerated, No Restrictions Activities you can perform: Regular-No Restrictions Follow up Referrals: Gastroenterology - 2 Weeks with Herlinda Farrell MD PCP Follow-up - 1 Week Urology - 1 Week with Yaw Bonilla DO New Medications: Amoxicillin-Clavulanate (Augmentin) 500-125 mg Tab 500 MG PO Q8H for Infection for 16 Days, TAB 0 Refills Discontinued Medications: Azithromycin (Azithromycin) 250 Mg Tab 250 MG PO DIRECTED for Infection, #6 TAB 0 Refills Take 2 tabs (500 mg) on day 1 then 1 tab daily x 4 days. Benzonatate (Benzonatate) 100 Mg Cap 200 MG PO TID PRN for COUGH, CAP 0 Refills Loratadine (Loratadine) 5 Mg/5 Ml (5 Ml) Solution Jose Triana Aug 01, 2017 12:02
[2017-08-01] MEDS ORDERED: PHARMACY ORDERED LAB ONE (15:45)
== END 2017-08-01 14:45 | disposition home or self-care (01) | DRG 698 ==
LOC: PHED 06:07 → PHEDH 06:17 → PH3B 08:11 → PHICU 16:16
PROVIDERS: ADMIT Hospitalist; ATTEND Hospitalist
PROC: 0T9030Z Drainage of Right Kidney with Drainage Device, Percutaneous Approach (ICD-10-PCS; principal; 2017-07-29)
PROC: BT1DZZZ Fluoroscopy of Right Kidney, Ureter and Bladder (ICD-10-PCS; 2017-07-29)
DX: T83.593A Infection and inflammatory reaction due to other urinary stents, initial encounter (principal); A40.8 Other streptococcal sepsis; A41.4 Sepsis due to anaerobes; N17.9 Acute kidney failure, unspecified; K50.00 Crohn's disease of small intestine without complications; T83.192A Other mechanical complication of indwelling ureteral stent, initial encounter; N13.6 Pyonephrosis; E86.0 Dehydration; N21.0 Calculus in bladder; J06.9 Acute upper respiratory infection, unspecified; Z87.442 Personal history of urinary calculi
CPT/HCPCS: 50432; 74021; 80053; 80202; 82565; 83605; 85007; 85025; 85027; 85610; 85730; 87040; 87070; 87185; 87205; 87328; 87329; 87493; 87506; 99152; 99153; C1729; C1769; C1887; J0295; J1956; J2185; J2250; J2270; J2405; J2543; J2550; J3010; J3370; J7030; J7050

== ENCOUNTER 2017-08-12 13:57 | Emergency (ER) | payer SELFPAY ==
[~2017-08-12 13:57] MED LIST changes: +AUGM500T7 PO; -AZIT250T3 PO; -BENZ1CAP54 PO; -LORA5SOL16
[2017-08-12 14:11] VITALS: BP 135/94; PULSE 79; RESP 14; TEMP 98.2; O2SAT 100
--- NOTE | 2017-08-12 14:55 | PD ---
HPI Chief Complaint: Medical Clearance Time Seen by Provider: 14:29 Travel History International Travel<30 days: No Contact w/Intl Traveler<30days: No Traveled to known affect area: No History of Present Illness HPI 42-year-old male presents to the emergency room for follow-up. Patient was discharged from the hospital on August 01 after having nephrostomy tube placed by Dr. Junior for pyelonephritis. He was supposed to follow-up with urologist, Dr. Bonilla, after 1 week to discuss removing the stent. He tried to go to the office but was denied because he does not have insurance. Patient denies any difficulty urinating, nausea, vomiting, abdominal pain, fevers, chills. He is primarily [place] speaking and his friend is translating for him. PFSH Past Medical History Asthma: No Cancer: No Chest Pain: No Congestive Heart Failure: No Diabetes: No Diminished Hearing: No Kidney Stones: Yes Neurologic: No Past Surgical History Other Surgery: Yes (STENT PLACEMENT X 1 YR FOR KIDNEY STONES) Social History Alcohol Use: No (denies) Tobacco Use: No (denies) Substance Use: No Allergies-Medications (Allergen,Severity, Reaction): Coded Allergies: No Known Allergies (Unverified , 07/29/17) Reported Meds & Prescriptions Reported Meds & Active Scripts Active Review of Systems Except as stated in HPI: all other systems reviewed are Neg Physical Exam Narrative GENERAL: Well-nourished, well-developed male in no acute distress. Afebrile. Ambulatory. SKIN: Focused skin assessment warm/dry. Percutaneous catheter in the right flank without surrounding erythema, induration, or drainage. HEAD: Normocephalic. EYES: No scleral icterus. No injection or drainage. NECK: Supple, trachea midline. No JVD or lymphadenopathy. CARDIOVASCULAR: Regular rate and rhythm without murmurs, gallops, or rubs. RESPIRATORY: Breath sounds equal bilaterally. No accessory muscle use. : Nephrostomy tube draining to gravity. Contents are clear, mildly pink tinged. No sediment. Data Data Last Documented VS Vital Signs Date Time Temp Pulse Resp B/P (MAP) Pulse Ox O2 Delivery O2 Flow Rate FiO2 08/12/17 14:11 98.2 79 14 135/94 (108) 100 MDM Medical Decision Making Medical Screen Exam Complete: Yes Emergency Medical Condition: Yes Medical Record Reviewed: Yes Differential Diagnosis Nephrostomy, pyonephrosis, follow-up, mandatory outpatient referral, hydronephrosis Narrative Course 42-year-old male presents to the emergency room for follow-up of his nephrostomy tube. He had it placed [address] Junior. He was supposed to follow-up outpatient with urology to discuss removing the tube in 1 week. They would not accept him because he does not have insurance. It is noted that mandatory outpatient referrals were placed on previous visit for patient but they have not been addressed. I spoke to case management who recommends placing another mandatory outpatient referral. Patient will be contacted in a few days to determine next course of action because [place]. He has no signs of infection. No medical complaints at this time. Nephrostomy site placement looks good without evidence of infection. Patient was instructed to return immediately for any signs of infection. He understands and agrees to plan. Diagnosis Primary Impression: H/O nephrostomy Referrals: Yaw Bonilla DO Additional Instructions: Mandatory outpatient referral placed. [facility] will be contacting you shortly regarding your referral. Follow-up with Dr. Bonilla. Return for worsening symptoms. Disposition: 01 DISCHARGE HOME Condition: Stable Edwige Ricci Aug 12, 2017 14:55
== END 2017-08-12 15:49 | disposition home or self-care (01) ==
LOC: NEPK 13:57
DX: Z46.6 Encounter for fitting and adjustment of urinary device (principal); Z93.6 Other artificial openings of urinary tract status
CPT/HCPCS: 99281